=== PATIENT | female | born 1955 | race Caucasian/White ===

== ENCOUNTER → 2023-06-23 09:35 | Outpatient (CLI) | payer MEDICARE, SELFPAY ==
--- NOTE | ~2023-06-23 | XR_ITS ---
Clinical Indication: Cough PA and lateral views of the chest: Comparison: None Findings: There are patchy airspace opacities in the bilateral lung bases and right midlung. Probable minimal right pleural effusion. Cardiomediastinal silhouette is within normal limits. Bones and sof t tissues are unremarkable. Impression: Patchy airspace opacities bilaterally, as detailed above, suspicious for multifocal pneumonia/infecti ous process. Minimal right pleural effusion. Reviewed, dictated and finalized at location M. Impression: Patchy airspace opacities bilaterally, as detailed above, suspicious for multif ocal pneumonia/infectious process. Minimal right pleural effusion.
== END ==
PROVIDERS: PCP Nurse Practitioner Family; Visit Provider Nurse Practitioner Family
DX: R05.9 Cough, unspecified (principal); R50.9 Fever, unspecified; R91.8 Other nonspecific abnormal finding of lung field
CPT/HCPCS: 71046

== ENCOUNTER → 2024-01-05 10:30 | Outpatient (CLI) | payer MEDICARE, SELFPAY ==
--- NOTE | ~2024-01-05 | XR_ITS ---
Clinical Indication: Chronic cough PA and lateral views of the chest: Comparison: 06/23/2023 Findings: Questional focal right infrahilar density, nonspecific. Left lung clear. Cardiomediastinal silhouette is within normal limits. Bones and soft tissues are unremarkable. Impression: Questionable focal right infrahilar density, nonspecific. Focal pneumonitis is a consideration. Consi arcenio short-term follow-up exam or CT to further evaluate. Reviewed, dictated and finalized at location . Impression: Questionable focal right infrahilar density, nonspecific. Focal pneumonitis is a consideration. Consider short-term follow-up exam or CT to further evaluate.
== END ==
PROVIDERS: PCP Family Medicine; Visit Provider Nurse Practitioner Family
DX: R05.3 Chronic cough (principal); R91.8 Other nonspecific abnormal finding of lung field
CPT/HCPCS: 71046

== ENCOUNTER 2024-01-14 07:28 | Outpatient (CLI) | payer MEDICARE, SELFPAY ==
--- NOTE | ~2024-01-14 | CT_ITS ---
CT Scan of the Chest without Contrast: Clinical Indication: Other disorder of lung Technique: Contiguous sections were acquired throughout the chest without intravenous contrast. Dose reduction technique was used on this scan by utilizing automated exposure control and iterative recon struction technique. The dose-length product (DLP) was 130.64 mGy-cm. Findings: There is no evidence of any significant mediastinal, hilar or axillary lymphadenopathy. The mediastin al soft tissues appear normal. There is no evidence of pleural or pericardial effusion. There are focal tree-in-bud nodules in the posterior right lower lobe. There is consolidation in the anterior right middle lobe, some surrounding streaky opacities. Left lung clear. Images through the upper abdomen reveal no abnormalities. Impression: Right middle lobe consolidation. Morphology suggests rounded atelectasis, but pneumonia and neoplasm are not excluded. Correlate clinically. Consider short-term follow-up CT, PET/CT, and/or tissue sampl ing as indicated. Minimal tree-in-bud opacities in the right lower lobe, compatible small areas infectious process. Reviewed, dictated and finalized at location . Impression: Right middle lobe consolidation. Morphology suggests rounded atelectasis, but p neumonia and neoplasm are not excluded. Correlate clinically. Consider short-te follow-up CT, PET/CT, and/or tissue sampling as indicated. Minimal tree-in-bud opacities in the right lower lobe, compatible small areas i nfectious process.
== END 2024-01-14 07:29 | disposition home or self-care (01) ==
PROVIDERS: PCP Family Medicine; Visit Provider Nurse Practitioner Family
DX: J98.4 Other disorders of lung (principal); R91.8 Other nonspecific abnormal finding of lung field
CPT/HCPCS: 71250

== ENCOUNTER 2024-03-08 09:45 | Outpatient (CLI) | payer MEDICARE, SELFPAY ==
--- NOTE | ~2024-03-08 | CT_ITS ---
CT Scan of the Chest without Contrast: Clinical Indication: Pneumonia Technique: Contiguous sections were acquired throughout the chest without intravenous contrast. Dose reduction technique was used on this scan by utilizing automated exposure control and iterative recon struction technique. The dose-length product (DLP) was 133.52 mGy-cm. COMPARISON: 01/14/2024 Findings: There is no evidence of any significant mediastinal, hilar or axillary lymphadenopathy. The mediastin al soft tissues appear normal. There is no evidence of pleural or pericardial effusion. Mild tree-in-bud opacities in the right lower lobe are present, somewhat similar to prior exam. Previ ously noted right middle lobe consolidation is resolved, with probable residual postinflammatory curv ilinear scarring. Stable subcentimeter nodules in the lingula. Images through the upper abdomen reveal no abnormalities. Impression: Marked interval improvement in right middle lobe pneumonia, with probable residual curvilinear post i nflammatory scarring. Mild tree-in-bud opacities in the right lower lobe are similar to prior exam, compatible small airway s infection. Stable subcentimeter pulmonary nodules at the lingula. Reviewed, dictated and finalized at location M. Impression: Marked interval improvement in right middle lobe pneumonia, with probable resid ual curvilinear post inflammatory scarring. Mild tree-in-bud opacities in the right lower lobe are similar to prior exam, c ompatible small airways infection. Stable subcentimeter pulmonary nodules at the lingula.
== END 2024-03-08 09:46 | disposition home or self-care (01) ==
LOC: ANHIMG 09:46
PROVIDERS: PCP Family Medicine; Visit Provider Internal Medicine Critical Care Medicine
DX: J18.9 Pneumonia, unspecified organism (principal); R91.8 Other nonspecific abnormal finding of lung field
CPT/HCPCS: 71250

== ENCOUNTER 2024-11-20 14:24 | Emergency (ER) | payer MEDICARE, SELFPAY ==
--- NOTE | ~2024-11-20 | XR_ITS ---
EXAMINATION: XR chest 2V DATE: 11/20/2024 16:39 INDICATION: Cough. TECHNIQUE: Frontal and lateral views of the chest were obtained. COMPARISON: Chest 2 view 01/04/34, chest CT 03/08/2024 FINDINGS: There is no pneumonia, pleural effusion, or pneumothorax. The heart size is normal. IMPRESSION: 1. No acute cardiopulmonary disease. Reviewed, dictated and finalized at location A. F I DISPATCHER
[2024-11-20 15:20] VITALS: BP 144/70; PULSE 75; RESP 18; TEMP 36.6; O2SAT 96
--- OUTSIDE RECORDS SUMMARY | 2024-11-20 15:40 | XMS_ITS | Clinical Summary ---
[facility] [place] Address [address] [place] [address] Phone Care Team Providers Care Code Clerk Name Role Phone Unavailable Primary Care Provider Unavailabl e Allergies Active Allergy Reactions Criticality Noted Date Comments Erythromycin Nausea and Vomiting Low 01/12/2022 Medications multivitamin (DAILY-GAMAL) tablet Take 1 Tab by mouth daily. Active Magnesium 250 mg Tablet Take by mouth. Active CHOLECALCIFEROL, VITAMIN D3, (VITAMIN D3 ORAL) Take by mouth. Active CALCIUM LACTATE ORAL Take by mouth. Active diphenhydrAMINE (BENADRYL) 25 mg tablet Take 25 mg by mouth. Active Active Problems Patient Care Coordination No te Formatting of this note migh t be different from the original. 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 Overview (12/16/2014): Stage: Clinical Tis Date of diagnosis: 12/19/14 Diagnosis: right DCIS Surgeon: Surgery: Medical Oncologist: Chemotherapy: Radiation Oncologist: Radiation: Hormonal therapy: Resolved Problems Problem Noted Date Diagnosed Date Resolved Date Mammographic microcalcification 11/29/2014 07/18/2015 Breast mass, right 11/22/2014 5 Encounters Date Type Department Care Team Description 11/15/2024 External Device Data [facility] ABSTRACTION Provider, Abstract 11/15/2024 External Device Data [facility] Provider, Abstract 11/08/2024 External Device Data [facility] Provider, Abstract 08/28/2024 External Device Data [facility] Provider, Abstract 08/23/2024 External Device Data [facility]STRACTION Provider, Abstract 08/22/2024 External Device Data [facility] ABSTRACTION Provider, Abstract from Last 3 Months Immunizations Immunization Administration Dates Next Due (PREVNAR 20)(6 WKS UP) PNEUM OCOCCAL CONJUGATE VACCINE 20-VALENT (PCV20), POLYSACCHARIDE [id number] CONJUGATE, ADJUVANT 0.5 ML (PF) IM 02/16/2023 INFLUENZA VACCINE QUADRIVALENT 3 YR UP PF IM 12/2018,09/07/2018 Zoster Vaccine Live SQ 11/25/2016 Family History Medical History Relation Name Comments Breast Cancer Paternal Aunt 1 2 sisters w / breast cancer Breast Cancer Paternal Aunt 2 Ovarian Cancer Neg Hx Uterine Cancer Neg Hx Relation Name Status Comments Paternal Aunt 1 Alive Paternal Aunt 2 Alive Social History Tobacco Use Types Packs/Day Years Used Date Smoking Tobacco: Former Smokeless Tobacco: Never Tobacco Cessation:Counseling Given: Not Answered Alcohol Use Standard Drinks/Week Comments Yes 0 (1 standard drink = 0.6 oz pur e alcohol) Feeling Safe Answer Date Recorded Within the last year, have y ou been afraid of your partner or ex-partner? No 08/09/2024 Emotionally Abused Not on file 08/09/2024 Within the last year, have y ou been kicked, hit, slapped, or otherwise physically hurt by your partner or ex-partner? No 08/09/2024 Sexually Abused Not on file 08/09/2024 Feeling Safe Answer Date Recorded Are you in a relationship wi th someone who hurts you emotionally and/or physically? No 06/12/2023 Comments No Sex and Gender Information Value Date Recorded Sex Assigned at Not on file Legal Sex Female 1:57 PM [employer] Gender Identity Not on file Sexual Orientation Not on file Last Filed Vital Signs Vital Sign Reading Time Taken Comments Blood Pressure 134/77 08/09/2024 1:22 PM CDT Pulse 61 08/09/2024 1:22 PM CDT Temperature 36.7 ??C (98 ??F) 08/09/2024 1:22 PM CDT Respiratory Rate 17 06/12/2023 5:43 PM CDT Oxygen Saturation 99% 08/09/2024 1:22 PM CDT Inhaled Oxygen Concentration - - Weight 53.9 kg (118 lb 12.8 oz) 08/09/2024 1:22 PM CDT Height 154.9 cm (5' 1 ) 08/09/2024 1:22 PM CDT Body Mass Index 22.45 08/09/2024 1:22 PM CDT Plan of Treatment Upcoming Encounters Date Type Department Care Team (Late st Contact Info) Description 08/15/2025 9:30 AM CDT Appointment [facility] [address] [place] [id number] Frida Laguna MD [address] [facility] [address] [place] [phone] 08/15/2025 10:30 AM CDT Office Visit [facility] Oncology [facility] H[facility]ology [address] [place] [address] Frida Laguna MD [address] [facility] [address] [place] [phone] [place] [address] [place] [address] Health Maintenance Due Date Last Done Comments DTAP/TDAP/TD VACCINES (1 - Tdap) 1975 COLORECTAL SCREENING 2001 Colorectal Cancer Screening 2001 FIT-DNA Q 3 years 2001 FIT/FOBT Q 1 year 2001 Flex Sig/CT Colonography Q 5 years 2001 ZOSTER VACCINE (2 of 3) 01/20/2017 11/25/2016 INFLUENZA VACCINE (#1) 2024 09/26/2019, 2017 BREAST CANCER SCREENING 08/09/2025 08/09/20 24, 07/09/2023, 06/23/2022, Additional history exists RSV VACCINE (60+ or ) (1 - 1-dose 75+ series) 2031 OSTEOPOROSIS SCREENING Completed 05/08/2021 PNEUMOCOCCAL VACCINE 65+ YEARS Completed 02/16/2023 Procedures Procedure Name Priority Date/Time Associated Diagnosis Comments MAMMO 3D GEGE SCREEN BILAT W OR WO CAD Routine 08/09/2024 1:04 PM CDT History of breast cancer Ductal carcinoma in situ (DCIS) of right breast Breast cancer screening by mammogram XR DEXA BONE DENSITY AXIAL 1 OR MORE SITES Routine 05/08/2021 9:02 AM CDT Asymptomatic menopausal state from Last 3 Months or Most Recently Relevant to Health Maintenance Results * MAMMO 3D GEGE SCREEN BILAT W OR WO CAD (08/09/2024 1:04 PM CDT) Anatomical Region Laterality Modality Breast Bilateral Mammography 08/09/2024 1:04 PM CDT Impressions 08/09/2024 2:36 PM CDT IMPRESSION: No mammographic evidence of malignancy in the bilateral breasts. Routine screening mammography is recommended in one year. OVERALL FINAL ASSESSMENT: ??BI-RADS CATEGORY 2 - Benign findings. DICTATION LOCATION: [facility] 08/09/2024 2:36 PM CDT EXAMINATION: BILATERAL SCREENING DIGITAL MAMMOGRAPHY WITH TOMOSYNTHESIS AND CAD DATE: 08/09/2024 1:04 PM HISTORY: Routine screening mammography. Personal history of right breast cancer treated with right breast conservation therapy. COMPARISON: Mammography with dates ranging from 07/09/2023 to 03/14/2019. ?? TECHNIQUE: A bilateral screening mammogram was performed. Low-dose full-field digital breast tomosynthesis examination was performed with 2D and 3D acquisitions. Examination is read in conjunction with computer aided detection. ?? BREAST COMPOSITION: The breasts are heterogeneously dense, which may obscure small masses. FINDINGS: There are stable mammographic findings consistent with prior right breast conservation therapy. There are no suspicious masses, suspicious calcifications, or other suspicious findings in either breast. There has been no suspicious interval change. ?? Computer aided detection was used in the interpretation of this examination. Procedure Note Konstantin Keating MD - 08/09/2024 EXAMINATION: BILATERAL SCREENING DIGITAL MAMMOGRAPHY WITH TOMOSYNTHESIS AND CAD DATE: 08/09/2024 1:04 PM HISTORY: Routine screening mammography. Personal history of right breast cancer treated with right breast conservation therapy. COMPARISON: Mammography with dates ranging from 07/09/2023 to 03/14/2019. TECHNIQUE: A bilateral screening mammogram was performed. Low-dose full-field digital breast tomosynthesis examination was performed with 2D and 3D acquisitions. Examination is read in conjunction with computer aided detection. BREAST COMPOSITION: The breasts are heterogeneously dense, which may obscure small masses. FINDINGS: There are stable mammographic findings consistent with prior right breast conservation therapy. There are no suspicious masses, suspicious calcifications, or other suspicious findings in either breast. There has been no suspicious interval change. Computer aided detection was used in the interpretation of this examination. IMPRESSION: No mammographic evidence of malignancy in the bilateral breasts. Routine screening mammography is recommended in one year. OVERALL FINAL ASSESSMENT: BI-RADS CATEGORY 2 - Benign findings. DICTATION LOCATION: [facility] MAMMO ORDERABLES Final Result * XR DEXA BONE DENSITY AXIAL 1 OR MORE SITES (05/08/2021 9:02 AM CDT) Anatomical Region Laterality Modality Computed Radiogr aphy 05/08/2021 9:03 AM CDT Narrative 05/08/2021 9:35 AM CDT XR DEXA BONE DENSITY AXIAL 1 OR MORE SITES DATE: 05/08/2021 9:02 AM HISTORY: 65 years old Female with post menopausal symptoms. PROCEDURE: Planar images of the lumbar spine and hip(s) using a [employer] DEXA scanner for bone mineral density determination (BMD). Absolute bone mineral density measurements (in gm/cm^2) are available on the original PACS report. FINDINGS: ?? Lumbar Spine (L1-L4) T-score: -1.1 Left femoral neck T-score: -2.0 ?? Right femoral neck T-score: -1.9 ?? Comments: None IMPRESSION Osteopenic bone mineral density. DEFINITIONS: Normal: T-score above -1.0 ?? Osteopenia T-score less than -1.0 and above -2.5 Osteoporosis: T-score < -2.5 FRAX FRACTURE RISK ASSESSMENT: Risk factors: None. 10 Year Probability Of Fracture -Major Osteoporotic: 9.8% -Hip: 1.5% -Comparison population: [place], A major osteoporotic fracture is defined as a fracture of the spine, forearm, hip or shoulder. FOLLOW-UP RECOMMENDATIONS: Patients without high risk factors for osteoporosis: T-score -1.0 to -1.5 - Consider repeat BMD in 5-10 years T-score -1.5 to -2.0 - Consider repeat BMD in 3-5 years T-score -2.0 to - 2.5 - Consider repeat BMD every 2 years Patients on treatment for osteoporosis: 1-2 years after initiation of treatment and every 2 [address] Cameron Rucker DO DICTATION LOCATION: Location 1 - [facility] Procedure Note Cameron Rucker DO - 05/08/2021 XR DEXA BONE DENSITY AXIAL 1 OR MORE SITES DATE: 05/08/2021 9:02 AM HISTORY: 65 years old Female with post menopausal symptoms. PROCEDURE: Planar images of the lumbar spine and hip(s) using a [employer] DEXA scanner for bone mineral density determination (BMD). Absolute bone mineral density measurements (in gm/cm^2) are available on the original PACS report. FINDINGS: Lumbar Spine (L1-L4) T-score: -1.1 Left femoral neck T-score: -2.0 Right femoral neck T-score: -1.9 Comments: None IMPRESSION Osteopenic bone mineral density. DEFINITIONS: Normal: T-score above -1.0 Osteopenia T-score less than -1.0 and above -2.5 Osteoporosis: T-score < -2.5 FRAX FRACTURE RISK ASSESSMENT: Risk factors: None. 10 Year Probability Of Fracture -Major Osteoporotic: 9.8% -Hip: 1.5% -Comparison population: [place], A major osteoporotic fracture is defined as a fracture of the spine, forearm, hip or shoulder. FOLLOW-UP RECOMMENDATIONS: Patients without high risk factors for osteoporosis: T-score -1.0 to -1.5 - Consider repeat BMD in 5-10 years T-score -1.5 to -2.0 - Consider repeat BMD in 3-5 years T-score -2.0 to - 2.5 - Consider repeat BMD every 2 years Patients on treatment for osteoporosis: 1-2 years after initiation of treatment and every 2 [address] Cameron Rucker, DO DICTATION LOCATION: Location 1 - [facility] Dominique Aguila PA-C DIAGNOSTIC IMAGING ORDER [place] Final Result from Last 3 Months or Most Recently Relevant to Health Maintenance Insurance [facility] [id number] [id number] MEDICARE PART A AND B Advance Directives For more information, please contact: [phone] * Full Code (Latest Code Status on File) Date Activated Date Inactivated Comments 12/28/2014 7:54 AM 12/28/2014 2:23 PM * Full Code Date Activated Date Inactivated Comments 12/28/2014 7:48 AM 12/28/2014 7:54 AM
--- NOTE | 2024-11-20 16:18 | ED_ITS ---
HPI - URI/Sore Throat General Chief Complaint: Upper Respiratory Infection Stated Complaint: upper respiratory Time Seen by Provider: 11/20/24 16:48 Source: patient, RN notes reviewed and old records reviewed Mode of arrival: ambulatory Limitations: no limitations History of Present Illness HPI Narrative: patient presents with complaints of cough and congestion for 4 weeks. She has been treated with cefdinir and completed the course, states that fever is now gone, but now she continues with cough and wheezing. She is not in any distress, including respiratory distress. She reports that she has been taking DayQuil and NyQuil with moderate relief Related Data Home Medications ?Medication ?Instructions ?Recorded ?Confirmed ?Last Taken ?Type cholecalciferol (vitamin D3) 25 25 mcg PO DAILY 12/18/20 02/02/24 Unknown History mcg (1,000 unit) tablet magnesium 200 mg tablet 400 mg PO DAILY 12/18/20 02/02/24 Unknown History ospjjuzb-xbg-jxmxo ac 400 tablet PO 12/18/20 02/02/24 Unknown History mcg-calcium carb 500 mg-vit K1 20 mcg tablet (Women's 50 Plus Multivitamin) psyllium [Metamucil (sugar)] PO 07/16/22 02/02/24 Unknown History Allergies Allergy/AdvReac Type Severity Reaction Status Date / Time erythromycin base AdvReac Unknown Nausea Verified 11/20/24 16:12 Review of Systems Review of Systems: All systems reviewed & are unremarkable except as noted in HPI and below Constitutional: Constitutional: Reports no additional constitutional complaints and Reports lethargy ENT: Reports system reviewed and no additional complaints, except as documented Cardiovascular: Cardiovascular: Reports no additional cardiovascular complaints Respiratory: Respiratory: Reports no additional respiratory complaints, Reports chest congestion and Reports cough Gastrointestinal: Gastrointestinal: Reports no additional gastrointestinal complaints FOR[facility]LY [facility] Past Medical History Medical History (Updated 11/20/24 @ 16:55 by Yusra Garcia APRN) Dysuria Abnormal chest CT Chronic cough Heart murmur Fever Cough Right-sided chest wall pain Fecal urgency Pneumonia involving left lung Encounter to establish care Malignant neoplasm of unspecified site of right female breast Hepatitis C antibody test negative (11/30/18) Surgical History Surgical History History of lumpectomy Family History Family History Grandparent Diabetes mellitus Family history of cardiovascular disease Family history of emphysema Mother Family history of glaucoma Father Hypertension Family history of elevated blood lipids Family history of cardiovascular disease Cancer Sibling Family history of elevated blood lipids Other Family history of malignant neoplasm of breast Social History Social History Smoking status: Former smoker Smoking end date: 10/25/76 Alcohol intake: current Drinks per week: 6 Substance use type: does not use Lack of Transportation: No Lack of Food: Never True Current Housing: I Have Housing Concerned About Future Housing: No Difficulty Paying Gas/Electric Bills: No Difficulty Paying for Meds: No Currently Unemployed: No Education: High School Diploma/GED Difficulty w/ Childcare or Family Care: No Comments At the time of my signature, I reviewed and agree with the nursing past medical, surgical, social, and family history. There is no relevant family history pertinent to the patient complaint. Exam Const: General: cooperative, no acute distress, alert and awake Orientation/consciousness: oriented to person, oriented to place and oriented to time HENMT: Head: normal to inspection Ears: TM's normal bilaterally Mouth: Yes moist mucous membranes Resp: Effort & Inspection: normal respiratory effort and able to speak in complete sentences Auscultation: clear to auscultation bilaterally, no crackles, no rales, no rhonchi and wheezes expiratory wheezes and scattered wheezes Cardio: Palpation: normal PMI Rate: regular rate Rhythm: regular rhythm Heart sounds: S1 normal heart sound present and S2 normal heart sound present Neuro: General: oriented to person, oriented to place and oriented to time Cranial nerves: Yes CN's II-XII intact bilaterally Psych: Appearance: grossly normal Thought process: Normal thought process present Insight: Good insight present (Psych) Judgement: Good judgement present (Psych) Course Course Level of Care: Express Care Visit Vital Signs Vital signs: Vital Signs Temperature 97.8 F 11/20/24 15:20 Pulse Rate 75 11/20/24 15:20 Respiratory Rate 18 11/20/24 15:20 Blood Pressure 144/70 H 11/20/24 15:20 Pulse Oximetry 96 11/20/24 15:20 Oxygen Delivery Room Air 11/20/24 15:20 Temperature 97.8 F 11/20/24 15:20 Pulse Rate 75 11/20/24 15:20 Respiratory Rate 18 11/20/24 15:20 Blood Pressure 144/70 H 11/20/24 15:20 Pulse Oximetry 96 11/20/24 15:20 Oxygen Delivery Room Air 11/20/24 15:20 Reviewed MDM - URI/Sore Throat MDM Narrative Medical decision making narrative: patient with cough, scattered wheezes. No distress. Start Z-Daniel, prednisone burst, bronchodilator. Patient nontoxic appearing, stable for discharge home. Discharge instructions reviewed with patient, as well as provided in writing per nursing staff. The instructions also include specific and strict return/GO TO THE ER as well as f/u information. All questions have been answered, and the patient deny any further questions with discharge and discharge plan. Some parts of this dictation were generated by voice recognition software and may contain typographical and/or grammatical inaccuracies. Differential Diagnosis Differential diagnosis: Likely upper respiratory infection, otitis media, viral infection, bronchitis and influenza Medical Records Attestation: I reviewed the patient's medical records. Lab Data Attestation: I reviewed the patient's lab results. Imaging Data Attestation: I personally reviewed and interpreted this imaging study as follows: My impression: no acute finding Radiologist's impression: [place] [address] XRay Report Signed Patient: Merari Park : 1955 MR#: [id number] Age: 69 Acct:[id number] Loc: [facility] ADM Date: 11/20/24Attending Dr: Ordering Physician: Yusra Garcia FNP Date of Service: 11/20/24 Procedure(s): XR chest 2V Accession Number(s): [id number] cc: Yusra Garcia FNP; Amy Baxter APN~ EXAMINATION: XR chest 2V DATE: 11/20/2024 16:39 INDICATION: Cough. TECHNIQUE: Frontal and lateral views of the chest were obtained. COMPARISON: Chest 2 view 01/04/34, chest CT 03/08/2024 FINDINGS: There is no pneumonia, pleural effusion, or pneumothorax. The heart size is normal. IMPRESSION: 1. No acute cardiopulmonary disease. 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 It is intended for pfou-kh-psed communication. It is written in medical language and may contain unfamiliar abbreviations or verbiage. Medical documents are intended to carry relevant information, facts as evident, and the clinical opinion of the practitioner at the time of the encounter. This report may have been done utilizing a voice recognition system. Attempts have been made to correct errors. However, there may be uncorrected grammatical, spelling, and recognition errors present. The file time of this note does not necessarily represent the time of service. Dictated By: Brennon Farr MD 11/20/24 1640 Signed By: <Electronically signed by Brennon Farr MD in OV> 11/20/24 1641 Discharge Plan Discharge Clinical Impression: Bronchitis Patient Disposition: Home, Self-Care Condition: Stable Instructions: Antibiotic Form, Acute Bronchitis (ED) Additional Instructions: take medications as prescribed. Follow with primary care provider. Emergency department for new or worse symptoms Patient Language: Bolivian Prescriptions: New azithromycin 250 mg tablet See Rx Instructions .ROUTE .COMPLEX Qty: 6 0RF Rx Instructions: For 250 mg dose pack: take 500 mg today (day 1), then 250 mg for 4 days (days 2-5) prednisone 50 mg tablet 50 mg PO DAILY Qty: 5 0RF albuterol sulfate [Ventolin HFA] 90 mcg/actuation HFA aerosol inhaler 2 puff inhalation QID PRN (Reason: shortness of breath or wheezing) Qty: 8.5 0RF No Action Women's 50 Plus Multivitamin 400 mcg-500 mg calcium-20 mcg tablet PO cholecalciferol (vitamin D3) 25 mcg (1,000 unit) tablet 25 mcg PO DAILY magnesium 200 mg tablet 400 mg PO DAILY psyllium [Metamucil (sugar)] PO cefdinir 300 mg capsule 300 mg PO Q12H Qty: 20 0RF Follow-up/Referrals: Amy Baxter, YULI [Primary Care Provider] - 2 Weeks Time of Disposition: 16:56
== END 2024-11-20 17:07 | disposition home or self-care (01) ==
PROVIDERS: Emergency Provider Nurse Practitioner Family; PCP Nurse Practitioner Family
DX: J40 Bronchitis, not specified as acute or chronic (principal); Z87.891 Personal history of nicotine dependence; R01.1 Cardiac murmur, unspecified; Z85.3 Personal history of malignant neoplasm of breast; Z90.10 Acquired absence of unspecified breast and nipple
CPT/HCPCS: 71046; 99213; G0463

== ENCOUNTER 2025-03-21 09:39 | Emergency (ER) | payer MEDICARE, SELFPAY ==
--- OUTSIDE RECORDS SUMMARY | 2025-03-21 09:43 | XMS_ITS | Clinical Summary ---
[facility] [place] Address [address] [place] [address] Phone Care Team Providers Care Logistics Assistant Name Role Phone Unavailable Primary Care Provider [...] [place] MD [address] [place] [address] Other: Dr Hailey Bostonuh Dr Celine Campos [...] Encounters Date Type Department Care Team Description 03/20/2025 External Device Data [facility] Provider, Abstract 03/14/2025 External Device Data [facility] Provider, Abstract 03/13/2025 External Device Data [facility] Provider, Abstract 01/02/2025 External Device Data [facility] Provider, Abstract 01/02/2025 External Device Data [facility] Provider, Abstract from Last 3 Months Immunizations Immunization Administration Dates Next Due (PREVNAR 20)(6 WKS UP) PNEUM OCOCCAL CONJUGATE VACCINE 20-VALENT (PCV20), POLYSACCHARIDE LUP392 CONJUGATE, ADJUVANT 0.5 ML (PF) IM 02/16/2023 [...] on file 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 Gender Identity Not on file Sexual Orientation Not on file Last Filed Vital Signs Vital Sign Reading Time Taken Comments Blood Pressure 134/77 08/09/2024 1:22 PM CDT Pulse 61 08/09/2024 1:22 PM CDT Temperature 36.7 C (98 F) 08/09/2024 1:22 PM CDT Respiratory Rate 17 06/12/2023 5:43 PM CDT Oxygen Saturation 99% 08/09/2024 1:22 PM CDT Inhaled Oxygen Concentration - - Weight 53.9 kg (118 lb 12.8 oz) 08/09/2024 1:22 PM CDT Height 154.9 cm (5' 1) 08/09/2024 1:22 PM CDT Body Mass Index 22.45 08/09/2024 1:22 PM CDT Plan of Treatment Upcoming Encounters Date Type Department Care Team (Late st Contact Info) Description 08/15/2025 9:30 AM CDT Appointment [facility] [address] [place] [phone] Frida Laguna MD [address] [facility] [address] [place] [phone] 08/15/2025 10:30 AM CDT Office Visit [facility] [address] [place] [address] Frida Laguna MD [address] [place], [place] [phone] [place] [address] [place] [address] Health Maintenance Due Date Last Done Comments DTAP/TDAP/TD VACCINES (1 - Tdap) 1975 COLORECTAL SCREENING 2001 Colorectal Cancer Screening 2001 FIT-DNA Q 3 years 2001 FIT/FOBT Q 1 year 2001 Flex Sig/CT Colonography Q 5 years 2001 ZOSTER VACCINE (2 of 3) 01/20/2017 11/25/2016 INFLUENZA VACCINE (#1) 2024 09/26/2019, 2017 BREAST CANCER SCREENING 08/09/2025 08/09/20 24, 07/09/2023, 06/23/2022, Additional history exists OSTEOPOROSIS SCREENING 05/08/2026 05/08/2021 RSV VACCINE (60+ or ) (1 - 1-dose 75+ series) 2031 PNEUMOCOCCAL VACCINE 50+ YEARS Completed 02/16/2023 Procedures Procedure Name Priority [...] - Benign findings. DICTATION LOCATION: [facility] 08/09/2024 2:36 PM CDT EXAMINATION: BILATERAL SCREENING [...] the interpretation of this examination. Procedure Note Barina, Konstantin, MD - 08/09/2024 EXAMINATION: BILATERAL SCREENING DIGITAL [...] Benign findings. DICTATION LOCATION: [facility] [employer] ORDERABLES Final Result * XR DEXA [...] the lumbar spine and hip(s) using a Conmio DEXA scanner for bone mineral density determination [...] Rucker DO DICTATION LOCATION: Location 1 - [facility] Procedure Note Cameron Rucker DO - 05/08/2021 XR DEXA BONE DENSITY AXIAL 1 OR MORE SITES DATE: 05/08/2021 9:02 AM HISTORY: 65 years old Female with post menopausal symptoms. PROCEDURE: Planar images of the lumbar spine and hip(s) using a Conmio DEXA scanner for bone mineral density determination [...] Rucker DO DICTATION LOCATION: Location 1 - [facility] Dominique Aguila PA-C DIAGNOSTIC IMAGING ORDER MENDOZA Final Result from Last 3 Months or Most Recently Relevant to Health Maintenance Insurance [facility] [id number] MEDICARE PART A AND B Advance Directives For more information, please contact: [phone] * Full Code (Latest Code Status on File) Date Activated Date Inactivated Comments 12/28/2014 7:54 AM 12/28/2014 2:23 PM * Full Code Date Activated Date Inactivated Comments 12/28/2014 7:48 AM 12/28/2014 7:54 AM
--- OUTSIDE RECORDS SUMMARY | 2025-03-21 09:43 | XMS_ITS | Encounter Summary ---
Author Organization [facility] Address 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 [place], [place] [phone] 08/15/2025 10:30 AM CDT Office Visit [facility] Oncology and Hematology [address] [place] [address] Frida Laguna MD [address] [place], [place] [phone] [place] [address] [place] [address] documented as of this encounter Visit Diagnoses Not on filedocumented in this encounter
--- NOTE | 2025-03-21 09:48 | ED_ITS ---
HPI - URI/Sore Throat General Chief Complaint: Upper Respiratory Infection Stated Complaint: bronchitis Time Seen by Provider: 03/21/25 09:48 Source: patient Mode of arrival: ambulatory Limitations: no limitations History of Present Illness HPI Narrative: 69 y/o female presented for c/o cough, fever. Onset 3 days. Reports temp up to 100.2. Reports tight chest with coughing or taking deep breaths, and has had pain intermittently on the left which then moved to the right. States it feels similar to the bronchitis she was diagnosed with 4 months ago. Taking Dayquil and Nyquil. Denies palpitations, sob, wheezing, n/v/d, dizziness, or fatigue. Related Data Home Medications ?Medication ?Instructions ?Recorded ?Confirmed ?Last Taken ?Type magnesium 200 mg tablet 400 mg PO DAILY 12/18/20 02/02/24 Unknown History niikfgsp-tyk-zjzmj ac 400 tablet PO 12/18/20 02/02/24 Unknown History mcg-calcium carb 500 mg-vit K1 20 mcg tablet (Women's 50 Plus Multivitamin) psyllium [Metamucil (sugar)] PO 07/16/22 02/02/24 Unknown History lactobacillus combination no.9 4 4,000 mmu cells PO DAILY 01/10/25 Unknown History billion cell capsule (Adult 50 Plus Probiotic) Allergies Allergy/AdvReac Type Severity Reaction Status Date / Time erythromycin base AdvReac Unknown Nausea Verified 03/21/25 09:49 Review of Systems Review of Systems: CONSTITUTIONAL: Denies body aches, fever, chills, or sweats. EYES: Denies visual changes, redness, or discharge. ENT: Denies rhinorrhea, congestion, sore throat, or otalgia. CARDIOVASCULAR: Denies chest pain, palpitations, or edema. RESPIRATORY: Reports cough, denies sob, wheezing. GASTROINTESTINAL: Denies abdominal pain, nausea, vomiting, or diarrhea. SKIN: Denies rash MUSCULOSKELETAL: Denies back pain, joint pain, or myalgia. NEUROLOGIC: Denies headache All systems reviewed & are unremarkable except as noted in HPI and below PMFSH Past Medical History Medical History Hyperlipidemia Dysuria Abnormal chest CT Chronic cough Heart murmur Fever Cough Right-sided chest wall pain Fecal urgency Pneumonia involving left lung Encounter to establish care Malignant neoplasm of unspecified site of right female breast Hepatitis C antibody test negative (11/30/18) Surgical History Surgical History History of lumpectomy Family History Family History Grandparent Diabetes mellitus Family history of cardiovascular disease Family history of emphysema Mother Family history of glaucoma Father Hypertension Family history of elevated blood lipids Family history of cardiovascular disease Cancer Sibling Family history of elevated blood lipids Other Family history of malignant neoplasm of breast Social History Social History Smoking status: Former smoker Smoking end date: 10/25/76 Alcohol intake: current Drinks per week: 6 Substance use type: does not use Lack of Transportation: No Lack of Food: Never True Current Housing: I Have Housing Concerned About Future Housing: No Difficulty Paying Gas/Electric Bills: No Difficulty Paying for Meds: No Currently Unemployed: No Education: High School Diploma/GED Difficulty w/ Childcare or Family Care: No Comments At time of signature, I have reviewed and agree with nursing past medical, surgical, social and family history unless otherwise noted. Please see nursing chart for further information. There is no relevant family history pertinent to the presenting complaint Exam Narrative: GENERAL: Well-appearing, in no acute distress. EYES: EOMI. No redness or drainage. Conjunctivae normal. ENT: Mucous membranes pink and moist. No rhinorrhea. TMs normal bilaterally. Throat normal. Uvula midline. NECK: Normal AROM. Supple. CHEST: No respiratory distress.Lungs clear to all garcia. HEART: Regular rate and rhythm. No murmur appreciated. SKIN: Warm, dry, no rash. Capillary refill normal. Normal skin turgor. NEURO: Alert and oriented x3. Gait steady. PSYCH: Normal affect. Course Course Emergency Course: Patient is aware of diagnosis, understands and agrees to treatment plan. Anticipatory guidance given. Patient agrees to follow-up as directed and is aware of reasons to seek care at the emergency department. Portions of this record may have been created with voice recognition software Level of Care: Express Care Visit MDM - URI/Sore Throat MDM Narrative Medical decision making narrative: Discussed physical exam findings; shared decision making will send steroid and defer imaging at this time given onset of 3 days. Advised supportive measures and signs/symptoms to go to the ER. Pt is appropriate for outpt treatment and f/u. Differential Diagnosis Differential diagnosis: Likely upper respiratory infection, sinusitis, viral infection, bronchitis, pharyngitis and other (Angioedema, perforation, asthma, pneumonia, PE, tension pneumothorax, cardiac tamponade VA, pericarditis, pleural effusion, CHF, bronchitis, cardiac arrhythmia) Discharge Plan Discharge Clinical Impression: Bronchitis Patient Disposition: Home Condition: Stable Instructions: Antibiotic Form, Acute Bronchitis (ED) Additional Instructions: Acute bronchitis can be contagious because it is usually caused by infection with a virus or bacteria. It is usually for a few days but you can be contagious for up to one week. Avoid crowds until you do not have a fever and symptoms are improved Take medication as directed Albuterol inhaler every 6 hours as needed Recommendations: over the counter Cough syrup may cause drowsiness; avoid driving or take it at night time. Tylenol every 8 hours as needed for pain Flonase spray and Zyrtec (or Claritin/Smita) if you have nasal congestion Symptomatic treatment includes: rest, fluids, and increase humidity of the air at home. Follow up with your primary care provider as needed in 1 week Go to the ER for worsening symptoms or concerns Patient Language: Greenlandic Prescriptions: New methylprednisolone [Medrol (Daniel)] 4 mg tablets,dose pack See Rx Instructions .ROUTE .COMPLEX Qty: 21 0RF Rx Instructions: orally per package directions albuterol sulfate 90 mcg/actuation HFA aerosol inhaler 2 inh inhalation QID PRN (Reason: shortness of breath or wheezing) Qty: 8.5 0RF No Action Adult 50 Plus Probiotic 4 billion cell capsule 4,000 mmu cells PO DAILY Rx Instructions: administer with a meal Women's 50 Plus Multivitamin 400 mcg-500 mg calcium-20 mcg tablet PO magnesium 200 mg tablet 400 mg PO DAILY psyllium [Metamucil (sugar)] PO Follow-up/Referrals: Amy Baxter NP [Primary Care Provider] - Time of Disposition: 09:59
[2025-03-21 09:49] VITALS: BP 141/74; PULSE 85; RESP 18; TEMP 36.6; O2SAT 100
== END 2025-03-21 10:03 | disposition home or self-care (01) ==
PROVIDERS: Emergency Provider Nurse Practitioner Family; PCP Nurse Practitioner Family
DX: J40 Bronchitis, not specified as acute or chronic (principal); Z87.891 Personal history of nicotine dependence; E78.5 Hyperlipidemia, unspecified; R01.1 Cardiac murmur, unspecified; Z85.3 Personal history of malignant neoplasm of breast; Z90.10 Acquired absence of unspecified breast and nipple
CPT/HCPCS: 99213; G0463

== ENCOUNTER 2025-06-08 08:33 | Outpatient (CLI) | payer MEDICARE, SELFPAY ==
--- NOTE | ~2025-06-08 | DEXA_ITS ---
Bone Density Report Name: ANNA REGALADO Age: 69 Sex: Female Ethnicity: White Date of : 1955 Indication: osteopenia; height loss; Referring Provider: ANANDA HERNANDEZ Study: Bone densitometry was performed. Exam Date: June 08, 2025 Accession number: [id number] Bone Density: Region BMD T-score Z-score Classification AP Spine(L1-L4) 0.812 -2.1 -0.1 Osteopenia Femoral Neck (Left) 0.572 -2.5 -0.8 Osteoporosis Total Hip (Left) 0.691 -2.1 -0.6 Osteopenia Femoral Neck (Right) 0.611 -2.1 -0.4 Osteopenia Total Hip (Right) 0.723 -1.8 -0.4 Osteopenia Total Hip Mean 0.707 -2.0 -0.5 Osteopenia World Health Organization criteria for BMD impression classify patients as: Normal (T-score at or above -1.0), Osteopenia (T-score between -1.0 and -2.5), or Osteoporosis (T-score at or below -2.5). 10-year Fracture Risk: FRAX not reported because: Some T-score for Spine Total or Hip Total or Femoral Neck at or below -2.5 Previous Exams: -- Region Exam Age BMD T-score BMD Change BMD Change Date g/cm2 vs Baseline vs Previous -- AP Spine (L1-L4) 06/08/2025 69 0.812 -2.1 -12.0%* -12.0%* 12/04/2015 60 0.922 -1.1 Total Hip(Left) 06/08/2025 69 0.691 -2.1 -6.4%* -6.4%* 12/04/2015 60 0.738 -1.7 Total Hip(Right) 06/08/2025 69 0.723 -1.8 -6.4%* -6.4%* 12/04/2015 60 0.772 -1.4 -- *Denotes significance at 95% confidence level, LSC for AP Spine = 0.022 g/cm2, LSC for Total Hip = 0.027 g/cm2 Clinical Information Provided by Patient: Has used the following medications: Vitamin D, Calcium Patient maximum height was 62 Menopause Age: 52 Does not regularly consume dairy products Drinks caffeinated beverages Onset of menses at age 14 Number of children 2 Impression: The patient has osteoporosis, based on the Left Femoral Neck T-score. The BMD for the AP Spine (L1-L4) decreased, changing by -12.0% since the last DXA exam. The BMD for the Total Hip(Left) decreased, changing by -6.4% since the last DXA exam. The BMD for the Total Hip(Right) decreased, changing by -6.4% since the last DXA exam. Discussion: INCREASED RISK OF FRACTURE. BONE DENSITY IS UNDESIRABLY LOW AT ONE OR MORE SKELETAL SITES, CONSISTENT WITH POSTMENOPAUSAL OSTEOPOROSIS. This patient's lowest T-score meets the World Health Organization's (WHO) criteria for osteoporosis at one or more sites (T-score -2.5 or below). In untreated patients, the risk of osteoporotic fracture increases approximately two-fold for each 1.0 SD decrease in T-score. Low bone density is not the only risk factor for fracture; also consider factors such as patient's age, frailty or poor health, risk of falling, risk of injury, previous osteoporotic fracture, family history of osteoporosis, cigarette smoking, low body weight, etc. Not everyone with low bone mineral density has osteoporosis; osteomalacia and other metabolic bone disorders should also be considered. Patients who have osteoporosis should be evaluated for specific diseases and conditions (secondary causes) that may cause or contribute to bone loss. The [place] [employer] Endocrinologists (AACE) and National Osteoporosis Foundation (NOF) recommend pharmacologic intervention for all postmenopausal women whose T-score is in this range. The patient should follow a healthful lifestyle (good nutrition with adequate calcium and vitamin D, and appropriate weight-bearing exercise). Follow-Up: Consider a repeat BMD and Vertebral Fracture Assessment (VFA) exam in 2 years or sooner if medically necessary, to reassess this patient's status. Reported by: PRASAD on 06/08/2025 8:52:00 AM. Reviewed, dictated and finalized at location A.
== END 2025-06-08 08:34 | disposition home or self-care (01) ==
LOC: MICIMG 08:34
PROVIDERS: PCP Nurse Practitioner Family; Visit Provider Nurse Practitioner Family
DX: Z78.0 Asymptomatic menopausal state (principal); M85.80 Other specified disorders of bone density and structure, unspecified site
CPT/HCPCS: 77080

== ENCOUNTER 2025-09-03 14:11 | Outpatient (CLI) | payer MEDICARE, SELFPAY ==
--- NOTE | ~2025-09-03 | XR_ITS ---
EXAM/PROCEDURE: XR chest 2V HISTORY: R05.9 - Cough, unspecified X 4 DAYS, RT SIDE PAIN COMPARISON: November 20 TECHNIQUE: Two view(s) of the chest. FINDINGS: LUNGS: There are patchy and strandy opacities in both inferior lungs. There is hyperinflation and increased AP diameter, consistent with COPD in the appropriate clinical setting. PLEURAL SPACES: Clear. No evidence of fluid or pneumothorax. HEART/ MEDIASTINUM: Normal in appearance. SOFT TISSUES: Postoperative changes from right partial mastectomy. BONES: No acute osseous abnormality. IMPRESSION: Patchy and strandy opacities in both lung bases, consistent with acute infiltrates. Reviewed, dictated and finalized at location A. EZE ARTIST IMPRESSION: Patchy and strandy opacities in both lung bases, consistent with acute infiltra katie.
--- OUTSIDE RECORDS SUMMARY | 2025-09-03 14:18 | XMS_ITS | Clinical Summary ---
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 Active Magnesium 250 mg Tablet Take by mouth. Active CHOLECALCIFEROL , VITAMIN D3, (VITAMIN D3 ORAL) Take by mouth. Active diphenhydrAMINE (BENADRYL) 25 mg tablet Take 25 mg by mouth. Active CALCIUM CARBONATE ORAL Take by mouth. Active CALCIUM LACTATE ORAL Take by mouth. 08/15/20 25 Discontinue d(Alternate therapy prescribed) Active Problems Patient Care Coordination No te Formatting of this note migh t be different from the original. 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 Overview (12/16/2014): Stage: Clinical Tis Date of diagnosis: 12/19/14 Diagnosis: right DCIS Surgeon: Surgery: Medical Oncologist: Chemotherapy: Radiation Oncologist: Radiation: Hormonal therapy: Resolved Problems Problem Noted Date Diagnosed Date Resolved Date Mammographic microcalcification 11/29/2014 07/18/2015 Breast mass, right 11/22/2014 5 Encounters Date Type Department Care Team Description 08/21/2025 External Device Data STL ABSTRACTION Provider, Abstract 08/15/2025 10:30 AM CDT Office Visit [facility] [address] [place] [address] Frida Laguna MD Wiesner, [place], [place] Malignant neoplasm of breast in remission (Primary Dx); Encounter for follow-up examination after completed treatment for cancer; Screening breast examination 08/15/2025 9:14 AM CDT - 08/15/2025 11:59 PM CDT Hospital Encounter [facility] [address] [place] [address] Frida Laguna MD Discharge Disposition: Home or Self Care 07/31/2025 External Device Data STL ABSTRACTION Provider, Abstract 07/17/2025 External Device Data STL ABSTRACTION Provider, Abstract 07/10/2025 External Device Data STL ABSTRACTION Provider, Abstract 07/03/2025 External Device Data STL ABSTRACTION Provider, Abstract 06/26/2025 External Device Data STL ABSTRACTION Provider, Abstract 06/12/2025 External Device Data STL ABSTRACTION Provider, Abstract from Last 3 Months Immunizations Immunization Administration Dates Next Due (PREVNAR 20)(6 WKS UP) PNEUM OCOCCAL CONJUGATE VACCINE 20-VALENT (PCV20), POLYSACCHARIDE [id number] CONJUGATE, ADJUVANT 0.5 ML (PF) IM 02/16/2023 [...] who hurts you emotionally and/or physically? 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 Gender Identity Not on file Sexual Orientation Not on file Last Filed Vital Signs Vital Sign Reading Time Taken Comments Blood Pressure 132/84 08/15/2025 10:48 AM CDT Pulse 83 08/15/2025 10:48 AM CDT Temperature 36.4 C (97.5 F) 08/15/2025 10:48 AM CDT Respiratory Rate 17 06/12/2023 5:43 PM CDT Oxygen Saturation 99% 08/15/2025 10:48 AM CDT Inhaled Oxygen Concentration - - Weight 54.9 kg (121 lb) 08/15/2025 10:48 AM CDT Height 154.9 cm (5' 1) 08/15/2025 10:48 AM CDT Body Mass Index 22.86 08/15/2025 10:48 AM CDT Plan of Treatment Health Maintenance Due Date Last Done Comments DTAP/TDAP/TD VACCINES (1 - Tdap) 1975 COLORECTAL SCREENING 2001 Colorectal Cancer Screening 2001 FIT-DNA Q 3 years 2001 FIT/FOBT Q 1 year 2001 Flex Sig/CT Colonography Q 5 years 2001 ZOSTER VACCINE (2 of 3) 01/20/2017 11/25/2016 INFLUENZA VACCINE (#1) 2025 09/26/2019, 2017 OSTEOPOROSIS SCREENING 05/08/2026 05/08/2021 BREAST CANCER SCREENING 08/15/2026 08/15/20 25, 08/09/2024, 07/09/2023, Additional history exists RSV VACCINE (60+ or ) (1 - 1-dose 75+ series) 2031 PNEUMOCOCCAL VACCINE 50+ YEARS Completed 02/16/2023 Procedures Procedure Name Priority Date/Time Associated Diagnosis Comments MAMMO 3D GEGE SCREEN BILAT W OR WO CAD Routine 08/15/2025 9:27 AM CDT History of ductal carcinoma in situ (DCIS) of right breast Visit for screening mammogram XR DEXA BONE DENSITY AXIAL 1 OR MORE SITES Routine 05/08/2021 9:02 AM CDT Asymptomatic menopausal state from Last 3 Months or Most Recently Relevant to Health Maintenance Results * MAMMO 3D GEGE SCREEN BILAT W OR WO CAD (08/15/2025 9:27 AM CDT) Anatomical Region Laterality Modality Breast Bilateral Mammography 08/15/2025 9:27 AM CDT Impressions 08/15/2025 9:35 AM CDT IMPRESSION: 1. No concerning findings. OVERALL FINAL ASSESSMENT: BI-RADS CATEGORY 1: Negative. RECOMMENDATIONS: 1. Recommend annual mammography. DICTATION LOCATION: [facility] Narrative 08/15/2025 9:35 AM CDT BILATERAL SCREENING DIGITAL MAMMOGRAM WITH 3D TOMOSYNTHESIS AND CAD DATE: 08/15/2025 9:27 AM HISTORY: Routine yearly screening exam. TECHNIQUE: Low-dose full-field digital breast tomosynthesis examination was performed of both breasts with 2D and 3D acquisitions. CAD was utilized. COMPARISON: Studies dating back to April 2020 BREAST COMPOSITION: The breasts are heterogeneously dense, which may obscure small masses. FINDINGS: Right Breast: No concerning dominant masses, suspicious calcifications, parenchymal asymmetries or areas of architectural distortion are identified in the breast. Postoperative changes within the breast consistent with prior breast conservation therapy. Left Breast: No concerning dominant masses, suspicious calcifications, parenchymal asymmetries or areas of architectural distortion are identified in the breast. us Frida Laguna MD MAMMO ORDERABLES Final Resul t * XR DEXA BONE DENSITY AXIAL 1 OR MORE SITES (05/08/2021 9:02 AM CDT) Anatomical Region Laterality Modality Computed Radiogr aphy 05/08/2021 9:03 AM CDT Narrative 05/08/2021 9:35 AM CDT XR DEXA BONE DENSITY AXIAL 1 OR MORE SITES DATE: 05/08/2021 9:02 AM HISTORY: 65 years old Female with post menopausal symptoms. PROCEDURE: Planar images of the lumbar spine and hip(s) using a LUNiMOSPHERE DEXA scanner for bone mineral density determination [...] Rucker DO DICTATION LOCATION: Location 1 - [facility] Procedure Note Cameron Rucker DO - 05/08/2021 XR DEXA BONE DENSITY AXIAL 1 OR MORE SITES DATE: 05/08/2021 9:02 AM HISTORY: 65 years old Female with post menopausal symptoms. PROCEDURE: Planar images of the lumbar spine and hip(s) using a [employer] DEXA scanner for bone mineral density determination [...] Rucker, DO DICTATION LOCATION: Location 1 - [facility] Dominique Aguila PA-C DIAGNOSTIC IMAGING ORDER [place] Final Result from Last 3 Months or Most Recently Relevant to Health Maintenance Insurance MEDICARE PART A AND B Advance Directives For more information, please contact: [phone] * Full Code (Latest Code Status on File) Date Activated Date Inactivated Comments 12/28/2014 7:54 AM 12/28/2014 2:23 PM * Full Code Date Activated Date Inactivated Comments 12/28/2014 7:48 AM 12/28/2014 7:54 AM
== END 2025-09-03 14:12 | disposition home or self-care (01) ==
PROVIDERS: PCP Nurse Practitioner Family; Visit Provider Nurse Practitioner Family
DX: R91.8 Other nonspecific abnormal finding of lung field (principal); R05.9 Cough, unspecified; R50.9 Fever, unspecified
CPT/HCPCS: 71046